=== PATIENT | male | born 1965 | race Caucasian/White ===

== ENCOUNTER 2018-02-27 16:59 | Emergency (ER) | payer BC, OTHER ==
--- NOTE | 2018-02-27 19:04 | ED Physician Documentation ---
History of Present Illness - Stated complaint Stated Complaint: MALE /LEFT TESTICLE - Chief complaint Chief Complaint: General - History obtained from History obtained from: Patient - History of Present Illness Timing: How many weeks ago (6) Pain level max: 8 Pain level now: 8 Quality: aching Improved by: wearing tight underwear Worsened by: walking, lifting - Additonal information Additional information: L testicular swelling x 6 weeks. sees urology next week. States has not had any workup including UA or US Review of Systems Cardiac: denies: Chest pain / pressure Respiratory: denies: Cough GI: denies: Vomiting : denies: Dysuria, Frequency, Hesitancy, Discharge Skin: denies: Rash Musculoskeletal: denies: Neck pain, Back pain Neurologic: denies: Headache PD PAST MEDICAL HISTORY - Past Medical History Past Medical History: Yes Psych: Anxiety - Past Surgical History Past Surgical History: Yes General: Appendectomy - Present Medications Home Medications: Ambulatory Orders Medication Instructions Recorded Confirmed Alprazolam [Xanax] 1 tab PO DAILY 02/27/18 02/27/18 - Allergies Allergies/Adverse Reactions: Allergies Allergy/AdvReac Type Severity Reaction Status Date / Time pain medication Allergy Unknown Uncoded 02/27/18 17:55 - Social History Does the pt smoke?: No Smoking Status: Never smoker Does the pt drink ETOH?: Yes ETOH Use: Wine, Beer, Liquor Does the pt have substance abuse?: Yes Substance Use and Type: Marijuana - Immunizations Immunizations are current?: Yes - POLST Patient has POLST: No PD ED PE NORMAL - Vitals Vital signs reviewed: Yes - General General: Alert and oriented X 3, No acute distress - Cardiac Cardiac: RRR - Respiratory Respiratory: No respiratory distress, Clear bilaterally - Abdomen Abdomen: Soft, Non tender, Non distended - Male Male : Other (large L testicular swelling and tenderness. no skin changes. ) - Derm Derm: Warm and dry - Neuro Neuro: Alert and oriented X 3 - Psych Psych: Normal mood, Normal affect Results - Vitals Vitals: Vital Signs - 24 hr 02/27/18 02/27/18 17:16 20:49 Temperature 36.9 C 37.2 C Heart Rate 89 69 Respiratory 18 18 Rate Blood Pressure 151/95 H 165/99 H O2 Saturation 98 98 Oxygen O2 Source Room air - Labs Labs: Laboratory Tests 02/27/18 19:39 Urine Color YELLOW Urine Clarity CLEAR Urine pH 7.0 Ur Specific [place] <=1.005 Urine Protein NEGATIVE Urine Glucose (UA) NEGATIVE Urine Ketones TRACE Urine Occult Blood NEGATIVE Urine Nitrite NEGATIVE Urine Bilirubin NEGATIVE Urine Urobilinogen 0.2 (NORMAL) Ur Leukocyte Esterase NEGATIVE Ur Microscopic Review NOT INDICATED Urine Culture Comments NOT INDICATED - Rads (name of study) testicular US Radiology: Prelim report reviewed, EMP read contemporaneously, See rad report ( Large left hydrocele. Otherwise normal scrotal ultrasound. Specifically without sonographic evidence of left testicular torsion) PD MEDICAL DECISION MAKING - ED course Complexity details: reviewed results, re-evaluated patient, considered differential, d/w patient ED course: Patient is a 52-year-old male who presents to the emergency department with a large left-sided hydrocele. He has an appointment with urology next week. Ultrasound was placed on a disc and given to him. He declines anything for pain here or for home. No testicular torsion. No emergency medical condition at this time. We will have him follow-up with his urologist as scheduled. Patient counseled regarding signs and symptoms for which I believe and urgent re -evaluation would be necessary. Patient with good understanding of and agreement to plan and is comfortable going home at this time This document was made in part using voice recognition software. While efforts are made to proofread this document, sound alike and grammatical errors may occur. - Sepsis Event Vital Signs: Vital Signs - 24 hr 02/27/18 02/27/18 17:16 20:49 Temperature 36.9 C 37.2 C Heart Rate 89 69 Respiratory 18 18 Rate Blood Pressure 151/95 H 165/99 H O2 Saturation 98 98 Oxygen O2 Source Room air Departure - Departure Disposition: 01 Home, Self Care Clinical Impression: Hydrocele Qualifiers: Hydrocele type: unspecified Qualified Code(s): N43.3 - Hydrocele, unspecified Condition: Good Instructions: ED Hydrocele Type Not Specified Follow-Up: Karthik Grigsby ARNP [Primary Care Provider] - Within 1 week Comments: Take the ultrasound with you to your urologist. Return if you worsen. Discharge Date/Time: 02/27/18 21:01
--- NOTE | 2018-02-27 19:27 | Ultrasound Report ---
Procedure Date: 02/27/2018 Accession Number: [id number] / [id number] Procedure: US - Testicle w/Doppler CPT Code: FULL RESULT: EXAM: SCROTAL ULTRASOUND EXAM DATE: 02/27/2018 06:14 PM. CLINICAL HISTORY: Left testicular pain. COMPARISON: None. TECHNIQUE: Real-time scanning was performed with static images obtained. Both color-flow and Doppler spectral analysis were utilized. FINDINGS: Right: Testis: 4.3 x 2.5 x 2.8 cm. Normal size and echotexture. No mass, calcification, or abnormal blood flow. Epididymis: 2.4 x 0.9 x 0.5 cm. Normal size and echotexture. No mass or abnormal blood flow. Hydrocele: None. Varicocele: None. Left: Testis: 4.8 x 2.8 x 2.6 cm. Normal size and echotexture. No mass, calcification, or abnormal blood flow. Epididymis: 2.5 x 0.7 x 0.4 cm. Normal size and echotexture. No mass or abnormal blood flow. Hydrocele: Large minimally complex hydrocele with specular reflectors but no septations demonstrated. Varicocele: None. IMPRESSION: Large left hydrocele. Otherwise normal scrotal ultrasound. Specifically without sonographic evidence of left testicular torsion. RADIA
[2018-02-27 19:45] LABS: BILIRUBIN,URINE NEGATIVE (NEGATIVE); GLUCOSE, URINE (UA) NEGATIVE (NEGATIVE); KETONES,URINE (UA) TRACE mg/dL (NEGATIVE); LEUKOCYTE ESTERASE, URINE NEGATIVE (NEGATIVE); NITRITE,URINE NEGATIVE (NEGATIVE); OCCULT BLOOD,URINE NEGATIVE (NEGATIVE); PROTEIN,URINE NEGATIVE (NEGATIVE); UROBILINOGEN,URINE 0.2 (NORMAL) E.U./dL (NORMAL)
[2018-02-27 19:49] LABS: CLARITY,URINE CLEAR (CLEAR)
[2018-02-27 20:50] VITALS: BP 165/99
== END 2018-02-27 21:01 | disposition home or self-care (01) ==
LOC: ED 16:59
DX: N43.3 Hydrocele, unspecified (principal)
CPT/HCPCS: 76870; 81001; 81003; 87086; 93975; 99283

== ENCOUNTER 2018-12-04 09:38 | Outpatient (CLI) | payer OTHER ==
[2018-12-04 10:14] LABS: HGB - HEMOGLOBIN 14.4 g/dL (14.0-18.0); MEAN CORPUSCULAR HGB CONC 33.9 g/dL (32.0-36.0); MEAN CORPUSCULAR VOLUME 91.4 fL (80.0-94.0); MEAN PLATELET VOLUME 7.2 fL (7.4-11.4); RED BLOOD COUNT 4.63 10^6/uL (4.70-6.10); RED CELL DISTRIBUTION WIDTH 12.7 % (12.0-15.0)
[2018-12-04 10:31] LABS: ALBUMIN 4.2 g/dL (3.2-5.5); ALBUMIN/GLOBULIN RATIO 1.4 (1.0-2.2); ALKALINE PHOSPHATASE 50 IU/L (42-121); ALT ALANINE AMINOTRANSFERASE 45 IU/L (10-60); AST ASPARTATE AMINOTRANSFERASE 47 IU/L (10-42); BILIRUBIN,TOTAL 0.7 mg/dL (0.2-1.0); BUN - BLOOD UREA NITROGEN 23 mg/dL (6-20); CALCIUM 8.9 mg/dL (8.5-10.3); CARBON DIOXIDE - CO2 29 mmol/L (21-32); CHLORIDE 99 mmol/L (101-111); CREATININE 0.7 mg/dL (0.6-1.2); GFR - MDRD 119 (>89); GLUCOSE 114 mg/dL (70-100); SODIUM 140 mmol/L (135-145); TOTAL PROTEIN 7.1 g/dL (6.7-8.2); URIC ACID 5.6 mg/dL (2.6-7.2)
[2018-12-04 10:50] LABS: THYROID STIMULATING HORMONE 0.87 uIU/mL (0.34-5.60)
[2018-12-04 10:52] LABS: FREE T4 (FREE THYROXINE) 0.73 ng/dL (0.58-1.64)
[2018-12-04 10:53] LABS: CRP - C-REACTIVE PROTEIN < 1.0 mg/dL (0-1.0)
[2018-12-04 18:30] LABS: RHEUMATOID FACTOR NEGATIVE (Negative)
[2018-12-06 11:23] LABS: ANA SCREEN NEGATIVE (NEGATIVE)
== END 2018-12-04 09:39 | disposition home or self-care (01) ==
LOC: LAB 09:38
PROVIDERS: ATTEND Family Medicine
DX: M19.90 Unspecified osteoarthritis, unspecified site (principal); M79.7 Fibromyalgia; M54.31 Sciatica, right side
CPT/HCPCS: 36415; 80053; 84439; 84443; 84481; 84550; 85027; 85651; 86038; 86140; 86430

== ENCOUNTER 2019-02-26 08:47 | Outpatient (CLI) | payer OTHER ==
[2019-02-26 09:12] LABS: BASOPHILS % (AUTO) 0.3 %; EOSINOPHILS % (AUTO) 0.3 %; HGB - HEMOGLOBIN 14.5 g/dL (14.0-18.0); LYMPHOCYTES # (AUTO) 0.8 10^3/uL (1.5-3.5); LYMPHOCYTES % (AUTO) 5.6 %; MEAN CORPUSCULAR HEMOGLOBIN 31.8 pg (27.0-31.0); MEAN CORPUSCULAR HGB CONC 34.7 g/dL (32.0-36.0); MEAN CORPUSCULAR VOLUME 91.7 fL (80.0-94.0); MEAN PLATELET VOLUME 8.9 fL (7.4-11.4); NEUTROPHILS # (AUTO) 12.6 10^3/uL (1.5-6.6); NEUTROPHILS % (AUTO) 86.4 %; PLT - PLATELET COUNT 246 10^3/uL (130-450); RED BLOOD COUNT 4.56 10^6/uL (4.70-6.10); WHITE BLOOD COUNT 14.6 x10^3/uL (4.8-10.8)
== END 2019-02-26 08:48 | disposition home or self-care (01) ==
LOC: LAB 08:47
PROVIDERS: ATTEND Family Medicine
DX: M25.50 Pain in unspecified joint (principal)
CPT/HCPCS: 36415; 85025; 85651

== ENCOUNTER 2019-10-18 16:35 | Outpatient (CLI) | payer OTHER | END 2019-10-18 16:36 | disposition home or self-care (01) | LOC: COV 16:35 | PROVIDERS: ATTEND Family Medicine | DX: R05 Cough (principal); R50.9 Fever, unspecified | CPT/HCPCS: 81599 ==

== ENCOUNTER 2020-11-02 16:02 | Outpatient (CLI) | payer OTHER ==
--- NOTE | 2020-11-02 17:05 | DEXA Report ---
PROCEDURE: Dexa Spine and/or Hip INDICATIONS: HX OF STRESS FRACTURE TECHNIQUE: Dual energy x-ray absorptiometry (DXA) was performed on a [employer] System. Regions measur ed are the AP Spine, femoral neck, and if needed forearm. COMPARISON: None. FINDINGS: Lumbar Spine: Bone Mineral Density 1.370 g/cm/cm,T score 1.3, normal Left Hip: Bone Mineral Density 1.087 g/cm/cm,T score -0.1, normal Left Femoral Neck: Bone Mineral Density 0.945 g/cm/cm, T score -1, normal (T score greater or equal to -1.0: NORMAL) (T score from -1.1 to -2.4: OSTEOPENIA) (T score less than or equal to -2.5 to: OSTEOPOROSIS) Impression: Normal bone mineral density over the lumbosacral spine, left hip and left femoral neck. Patients with diagnosis of osteoporosis or osteopenia should have regular bone mineral density assess ment. For those eligible for Medicare, routine testing is allowed once every 2 years. Testing frequ ency can be increased for patients who have rapidly progressing disease or for those who are receivin g medical therapy to restore bone mass. Reviewed by: Blaine Atwood MD on 11/02/2020 5:03 PM PDT Approved by: Blaine Atwood MD on 11/02/2020 5:03 PM PDT Station ID: [id number]
== END 2020-11-02 16:03 | disposition home or self-care (01) ==
LOC: DI 16:02
PROVIDERS: ATTEND Family Medicine
DX: Z87.312 Personal history of (healed) stress fracture (principal)

== ENCOUNTER 2020-12-02 07:00 | Outpatient (CLI) | payer OTHER ==
--- NOTE | 2020-12-02 11:50 | XRAY Report ---
PROCEDURE: Lumbar Spine 2 View INDICATIONS: LUMBAR BACK PAIN TECHNIQUE: 3 views of the lumbar spine were acquired. COMPARISON: None. FINDINGS: Bones: 5 [id number] vertebrae are present. There is normal bony alignment . Degenerative endpl ate changes are noted at L3-4 through L5-S1 levels. Mild bilateral facet arthrosis is also seen. No v ertebral body compression fractures. No suspicious bony lesions. Soft tissues: Overlying bowel gas pattern is normal. No suspicious soft tissue calcifications. IMPRESSION: Degenerative disc disease in mid to lower lumbar spine. No compression fracture or spond ylolisthesis. Reviewed by: Evan Birmingham MD on 12/02/2020 11:49 AM PDT Approved by: Evan Birmingham MD on 12/02/2020 11:49 AM PDT Station ID: [id number]
== END 2020-12-02 23:59 | disposition home or self-care (01) ==
LOC: DI.S 07:00
PROVIDERS: ATTEND Physician Assistant Medical
DX: M51.36 Other intervertebral disc degeneration, lumbar region (principal); M47.816 Spondylosis without myelopathy or radiculopathy, lumbar region; M51.37 Other intervertebral disc degeneration, lumbosacral region; M47.817 Spondylosis without myelopathy or radiculopathy, lumbosacral region

== ENCOUNTER 2022-10-12 14:16 | Outpatient (CLI) | payer OTHER ==
--- NOTE | 2022-10-12 17:01 | MRI Report ---
PROCEDURE: LUMBAR SPINE WO INDICATIONS: RT SIDED SCIATICA/RADICULOPATHY TECHNIQUE: Noncontrast sagittal T1 spin echo and T2 fast echo, sagittal STIR, axial T1 and T2 fast spin echo thr ough the lumbar spine. In cases with scoliosis, additional coronal T2 fast spin echo may be performe d. COMPARISON: None. FINDINGS: Anterolisthesis of L4 on L5 which produces a pseudo-bulge combining with a true disc bulge and broad- based posterior disc protrusion to produce severe subarticular zone stenosis and moderate spinal marcy l stenosis. Bulky facet hypertrophy and buckling of the ligamentum flavum further contribute to overa ll spinal canal narrowing. There is severe bilateral neural foraminal narrowing with flattening of th e exiting L4 nerve roots. At L5-S1, diffuse disc bulge and a superimposed broad-based posterior disc protrusion. Mild displacem ent of the descending S1 nerve roots. Severe bilateral neural foraminal stenosis with flattening of t he exiting L5 nerve roots. Bone marrow edema surrounding the L4-L5 and L5-S1 facets, along with adjacent soft tissue edema. Less er degenerative changes of the remaining facets. Normal position and appearance of the conus. Regional soft tissues otherwise normal. Alignment is oth erwise normal. No suspicious focal marrow signal abnormality. IMPRESSION: Anterolisthesis of L4 on L5 which combines with spondylitic and spondyloarthropathic changes to produ ce severe subarticular zone narrowing and moderate spinal canal stenosis with probable nerve root imp ingement. Severe bilateral neural foraminal narrowing at L4-L5 and L5-S1, with flattening of bilateral exiting nerve roots. Correlate for any corresponding radicular symptoms. Reviewed by: Bandar Lawler MD on 10/12/2022 5:00 PM PDT Approved by: Bandar Lawler MD on 10/12/2022 5:00 PM PDT Station ID: [id number]
== END 2022-10-12 14:17 | disposition home or self-care (01) ==
LOC: DI 14:16
PROVIDERS: ATTEND Student in an Organized Health Care Education/Training Program
DX: M43.16 Spondylolisthesis, lumbar region (principal); M48.061 Spinal stenosis, lumbar region without neurogenic claudication; M48.07 Spinal stenosis, lumbosacral region